=== PATIENT | female | born 1975 | race African-American/Black ===

== ENCOUNTER 2017-09-13 07:35 | Outpatient (CLI) | payer OTHER ==
--- NOTE | 2017-09-13 09:57 | MRI ---
MRI OF CERVICAL SPINE PERFORMED WITHOUT CONTRAST ENHANCEMENT: History: Neck pain that extends into the right shoulder. FINDINGS: The vertebral bodies are normal in height. There is disc narrowing and osteophytic change at the C5-6 level. Cord signal change appears normal. The cord is normal in caliber. C2-3: Unremarkable. C3-4: No canal or foraminal stenosis. C4-5: Minimal disc bulge without significant canal or foraminal stenosis. C5-6: Posterior osteophytic bar is present without significant canal stenosis. There is some very mil d bilateral foraminal narrowing, slightly greater on the left. C6-7: Unremarkable. C7-T1: Unremarkable. IMPRESSION: Disc bulge and posterior osteophytic change at C5-6 associated with some borderline canal narrowing a nd some minimal bilateral foraminal narrowing, greater on the left. POS: [facility]
== END 2017-09-13 07:36 | disposition home or self-care (01) ==
LOC: TBSIIMAG 07:35
PROVIDERS: ATTEND Orthopaedic Surgery
DX: M50.90 Cervical disc disorder, unspecified, unspecified cervical region (principal); M25.78 Osteophyte, vertebrae; M48.02 Spinal stenosis, cervical region; M50.80 Other cervical disc disorders, unspecified cervical region
CPT/HCPCS: 72141

== ENCOUNTER 2017-10-25 07:35 | Outpatient (CLI) | payer OTHER | END 2017-10-25 07:36 | disposition home or self-care (01) | LOC: BICMRI 07:35 | PROVIDERS: ATTEND Neurological Surgery | DX: G93.0 Cerebral cysts (principal); M54.16 Radiculopathy, lumbar region | CPT/HCPCS: 70551; 72148 ==

== ENCOUNTER 2018-03-13 07:35 | Outpatient (CLI) | payer OTHER ==
--- NOTE | 2018-03-13 08:25 | RAD ---
CHEST PA AND LATERAL TWO VIEWS: History: 43-year-old female with history of cough. FINDINGS: Heart size is within normal limits. The lungs are clear. No pneumonia, edema, or pleural effusion. IMPRESSION: No acute intrathoracic disease. No evidence for pneumonia. POS: [facility]
== END 2018-03-13 07:36 | disposition home or self-care (01) ==
LOC: RAD 07:35
PROVIDERS: ATTEND Internal Medicine
DX: R05 Cough (principal)
CPT/HCPCS: 71046

== ENCOUNTER 2018-10-06 09:13 | Outpatient (CLI) | payer OTHER ==
--- NOTE | 2018-10-06 10:41 | MRI ---
MR of the right shoulder without contrast INDICATION: Right shoulder pain. TECHNIQUE: Sagittal T1, axial and coronal PD fat sat, sagittal and coronal T2 fat sat images were obt ained of the right shoulder. COMPARISON: None FINDINGS: Motion artifacts slightly limits image detail Rotator cuff: There is a high-grade partial thickness articular surface rotator cuff tear involving t he mid to posterior supraspinatus with likely full-thickness component involving the mid supraspinatus on image 13 of series 4. There is some extension of the partial-thickness tear in to th e conjoined tendon and anterior aspect of infraspinatus tendon. The tear measures approximately 10.6 x 11 mm in its greatest AP and mediolateral dimensions respectively. There is moderate tendinosi s of the supraspinatus and infraspinatus. Subscapularis and teres minor are intact. Glenohumeral joint: Articular cartilage is intact. Glenoid labrum: Intact Biceps tendon and biceps anchor: Intact and located. Acromion clavicular joint: There is mild AC joint osteoarthrosis. There is a type II acromion Subacromial subdeltoid space: Small amount of fluid is seen within the subacromial subdeltoid bursa Axillary region: No lymphadenopathy. Surrounding shoulder musculature: Normal. No evidence of atrophy or strain. IMPRESSION: 1. High-grade partial thickness articular surface tear of the mid to posterior supraspinatus at the f ootprint with likely a small focal 3 mm full-thickness component. There is articular surface partial thickness extension into the conjoined tendon and anterior infraspinatus at the footprint. 2. Mild AC joint osteoarthrosis
--- NOTE | 2018-10-06 10:56 | MRI ---
MR OF THE THORACIC SPINE WITHOUT CONTRAST INDICATION: Thoracic radiculopathy; upper back pain between T2 and T5 that wraps around the right asp ect of the torso; ongoing for one to 2 years TECHNIQUE: Multiplanar multisequence MR images were obtained of the thoracic spine without contrast. Spine count series was provided. COMPARISON: None FINDINGS: Bone marrow signal intensity: Normal Spinal alignment: Normal Spinal cord: Normal signal intensity and contour. Paravertebral soft tissues: Normal Vertebral levels: T1-T2: No appreciable central canal or neural foraminal narrowing is evident. T2-T3: No appreciable central canal or neural foraminal narrowing. T3-T4: No appreciable central canal or neural foraminal narrowing. T4-T5: No appreciable central canal or neural foraminal narrowing. T5-T6: No appreciable central canal or neural foraminal narrowing. T6-T7: No appreciable central canal or neural foraminal narrowing. T7-T8: No appreciable central canal or neural foraminal narrowing. T8-T9: No appreciable central canal or neural foraminal narrowing. T9-T10: No appreciable central canal or neural foraminal narrowing is evident. T10-T11: No appreciable central canal or neural foraminal narrowing is demonstrated. T11-T12: No appreciable central canal or neural foraminal narrowing. T12-L1: No appreciable central canal or neural foraminal narrowing. Additional findings: None. IMPRESSION: 1. Normal MR of the thoracic spine.
== END 2018-10-06 09:14 | disposition home or self-care (01) ==
LOC: MRI 09:13
PROVIDERS: ATTEND Specialist
DX: M54.14 Radiculopathy, thoracic region (principal); M75.101 Unspecified rotator cuff tear or rupture of right shoulder, not specified as traumatic; M19.011 Primary osteoarthritis, right shoulder
CPT/HCPCS: 72146

== ENCOUNTER 2019-03-21 10:44 | Outpatient (CLI) | payer OTHER ==
[2019-03-21 17:16] LABS: BHCG - Serum Negative (NEGATIVE); Pregs Control Background? CLEAR/WHITE (CLR/WHITE); Pregs Control Bar Appear? YES (CONTROL BAR)
[2019-03-21 17:38] LABS: Anion Gap 13 mmol/L (10-20); BUN (Urea Nitrogen) 7 mg/dL (7.0-18.7); Calc. Creatinine Clearance 0 mL/min (70-130); Carbon Dioxide 25 mmol/L (22-29); Chloride 101 mmol/L (98-107); Estimated GFR-MDRD Greater than 90; Glucose 84 mg/dL (70-105); Potassium 3.3 mmol/L (3.5-5.1); Sodium 136 mmol/L (136-145)
[2019-03-21 18:18] LABS: Eosinophils 5 % (0-10); Hemoglobin 14.5 g/dL (12.0-16.0); Lymphocytes 60 % (21-51); MDiff Complete? YES; Mean Corpuscular Hemoglobin 30.3 pg (27.0-31.0); Mean Corpuscular Volume 91.6 fL (78.0-98.0); Mean Platelet Volume 6.7 fL (7.4-10.4); Monocytes 5 % (0-10); Neutrophil 26 % (42-75); Platelet Count 349 thou/uL (130-400); Platelet Morphology Comment Appears Adequate; RBC Distribution Width 11.2 % (11.5-14.5); RBC Morphology Normal; Reactive Lymphocytes 3 % (0-10); Red Blood Cell (RBC) Count 4.79 mill/uL (4.20-5.40); White Blood Cell (WBC) Count 8.6 thou/uL (4.8-10.8)
== END 2019-03-21 10:45 | disposition home or self-care (01) ==
LOC: LABBT 10:44
PROVIDERS: ATTEND Orthopaedic Surgery
DX: Z01.818 Encounter for other preprocedural examination (principal); M75.101 Unspecified rotator cuff tear or rupture of right shoulder, not specified as traumatic
CPT/HCPCS: 80048; 84703; 85025; 93005; 93010

== ENCOUNTER 2019-03-23 07:23 | Day surgery (SDC) | payer OTHER ==
[2019-03-21 16:28] VITALS: BMI 36.0
[2019-03-23] MEDS ORDERED: Midazolam HCl 2 mg/2 ml Vial ONE (08:54)
[2019-03-23] MEDS ORDERED: Fentanyl 100 MCG/2 ML VIAL ONE (08:55)
[2019-03-23] MEDS ORDERED: Ketorolac Tromethamine 30 MG/ML VIAL IVP PRN (09:15)
[2019-03-23] MEDS ORDERED: Scopolamine 1.5 mg/72 hour Patch ONE (09:15)
[2019-03-23] MEDS ORDERED: Ropivacaine 0.2% 550 ML 550 ML NERVE BLCK SCH (09:15)
[2019-03-23] MEDS ORDERED: Zolpidem Tartrate 5 MG TAB PO PRN (09:15)
[2019-03-23] MEDS ORDERED: Promethazine HCl 25 MG/ML VIAL IM PRN (09:15)
[2019-03-23] MEDS ORDERED: traMADol HCl 50 MG TAB PO PRN ×2 (09:15)
[2019-03-23] MEDS ORDERED: HYDROcodone/Acetaminophen 10/325 mg Tablet PO PRN ×2 (09:15)
[2019-03-23] MEDS ORDERED: Ondansetron PF 4 MG/2 ML Vial IVP PRN (09:15)
[2019-03-23] MEDS ORDERED: Fentanyl 100 MCG/2 ML VIAL IV PRN (09:16)
[2019-03-23] MEDS ORDERED: Bupivacaine/Epinephrine 0.25% 30 ML VIAL ONE (10:52)
--- NOTE | 2019-03-23 17:03 | OP ---
DATE OF PROCEDURE: 03/23/2019 PREOPERATIVE DIAGNOSES: 1. Right shoulder rotator cuff tear. 2. Biceps tendon instability. POSTOPERATIVE DIAGNOSES: 1. Right shoulder rotator cuff tear. 2. Biceps tendon instability. PROCEDURES PERFORMED: Right shoulder arthroscopy followed by arthroscopic rotator cuff repair followed by open biceps tenodesis. TEST ENGINEERING TECHNICIAN: Jarrell Valladares PA-C BLOOD LOSS: Less than 30 mL. COMPLICATIONS: Non ANESTHESIA: She had general anesthetic as well as a preoperative block. IMPLANTS: We used 1 double-loaded titanium anchor for the rotator cuff and we used a 7 x 23 BioComposite Bio-Tenodesis screw for the biceps. DISPOSITION: She did go to recovery room in stable condition. INDICATIONS: A 44-year-old female who has been having problems for quite some time with the right shoulder. We have tried injections and rehabbing and this helped the patient's motion, but she continued to have significant pain and weakness. At this time, she opted for surgery. DESCRIPTION OF PROCEDURE: After all appropriate consent forms were explained and signed, she was taken to the operative room and at this time was given general anesthetic. Once the level of anesthesia was appropriate, she was rolled into the left lateral decubitus position with all bony problems were well padded. An axillary roll was placed underneath the left axilla. Her right arm was then taken through full range of motion and was then hung up of 15 pounds in standard arthroscopic fashion. We then prepped and draped the right shoulder and upper extremity in a standard surgical fashion. Bony anatomical landmarks were drawn out and the subacromial space was infiltrated with Marcaine with epinephrine. Posterior portal was established. Scope was placed into the shoulder joint. Anterior working portal was then made using a needle localization technique. Diagnostic arthroscopy commenced. The articular surface of the humeral head and glenoid were in good condition. No loose bodies were noted in the axillary pouch. The subscapularis tendon was intact. The front portion of supraspinatus had significant tear, and while there were a couple intact fibers, the very beginning of the supraspinatus was torn leading to the biceps, rotating up the back of the groove and it looked like there was a significant amount of bare bone from where the tendon had pulled off. The posterior portion of the tendon appeared normal. The labrum had a significant superior labral tear that was debrided with a shaver. Anterior labrum was in good condition as well as posterior labrum. At this time, a green cannula was placed through the anterior portal. A needle was used to galicia the biceps and take a stitch through it and biceps was cut off the superior labrum using arthroscopic scissors. Once this was done, we then repositioned our camera into the subacromial space. Lateral working portal was made. Bursa was removed and we then noted 2 significant tears. One at the supraspinatus anteriorly just behind where we had placed our stitch through the interval for the biceps. At this time, the edges were freshened up with a shaver. All soft tissue was removed off the bone, and while we slightly decorticated. We made sure we did not remove enough bone to compromise our anchor. Posteriorly, there was an intertendinous tear. Therefore, we then placed our Passport cannula laterally and the first thing we did was place a [id number] suture using Orthocord, and once this was tied down, the small intertendinous tear was closed down. We then through a separate little stab incision placed our titanium anchor into the bone and ran the stitches through the rotator cuff in mattress fashion. These were then tied, bringing our tendon back down to the bone itself. This gave us a nice solid repair. The camera was removed. At this time, we went about performing our biceps tenodesis. A 15 blade was used to incise down through skin and Bovie was used to coagulate any brisk venous bleeding. We then found with a stitch that come through the deltoid fascia and we incised the fascia sharply, and using finger dissection, went in line with the deltoid down to the underlying humerus, and we then opened up our transverse humeral ligament, removing their tendon. All venous bleeding was coagulated. We then sewed our tendon and removed the intra-articular portion of this. We then placed our drill pin, reamed over top of this with a 7 mm reamer to a depth of 25 and placed our 7 x 23 BioComposite Bio-Tenodesis screw in standard fashion. Sutures were tied over top of this of the tendon, so that the screw could not back out. Once this was done, we thoroughly irrigated and dried our incision. The deltoid was allowed to fall close on its own. We ran a Vicryl to close our deltoid fascia, 2-0 Vicryl and nylon sutures were used to close skin. Each portal was also closed with simple nylon stitch. At this time, a bulky sterile dressing was applied. The patient was awakened. She was taken to recovery room in stable condition. All counts were correct at the end of the case. She did receive preoperative IV antibiotics. Job ID: [id number]
== END 2019-03-23 15:00 | disposition home or self-care (01) ==
LOC: SDC 07:23
PROVIDERS: ATTEND Orthopaedic Surgery
PROC: 0RHJ04Z Insertion of Internal Fixation Device into Right Shoulder Joint, Open Approach (ICD-10-PCS; principal; 2019-03-23)
PROC: 0LS10ZZ Reposition Right Shoulder Tendon, Open Approach (ICD-10-PCS; principal; 2019-03-23)
PROC: 0RNJ4ZZ Release Right Shoulder Joint, Percutaneous Endoscopic Approach (ICD-10-PCS; principal; 2019-03-23)
PROC: 0LQ14ZZ Repair Right Shoulder Tendon, Percutaneous Endoscopic Approach (ICD-10-PCS; principal; 2019-03-23)
PROC: 3E0T3BZ Introduction of Anesthetic Agent into Peripheral Nerves and Plexi, Percutaneous Approach (ICD-10-PCS; principal; 2019-03-23)
DX: M25.311 Other instability, right shoulder (principal); M75.111 Incomplete rotator cuff tear or rupture of right shoulder, not specified as traumatic; S43.491A Other sprain of right shoulder joint, initial encounter; G89.18 Other acute postprocedural pain; M19.011 Primary osteoarthritis, right shoulder; M75.01 Adhesive capsulitis of right shoulder; Z79.899 Other long term (current) drug therapy; Z91.018 Allergy to other foods; Z91.030 Bee allergy status
CPT/HCPCS: A4306; C1713; J0690; J2250; J2795; J3010

== ENCOUNTER 2019-08-10 12:13 | Outpatient (CLI) | payer OTHER ==
--- NOTE | 2019-08-10 13:32 | MMO ---
Bilateral MAMMO Bilat Screen [facility]. CLINICAL HISTORY: Patient is 44 years old and is seen for screening. The patient has a history of Breast reduction in 2011. VIEWS: The views performed were: bilateral craniocaudal with tomosynthesis and bilateral mediolateral oblique with tomosynthesis. This study has been interpreted with the assistance of computer-aided detection. MAMMOGRAM FINDINGS: There are scattered fibroglandular densities. Benign calcifications are noted bilaterally. There are no suspicious masses, suspicious calcifications, or new areas of architectural distortion. IMPRESSION: THERE IS NO MAMMOGRAPHIC EVIDENCE OF MALIGNANCY. A ROUTINE FOLLOW-UP MAMMOGRAM IN 1 YEAR IS RECOMMENDED. THE RESULTS OF THIS EXAM WERE SENT TO THE PATIENT. ACR BI-RADS Category 2 - Benign finding MAMMOGRAPHY NOTE: 1. A negative mammogram report should not delay a biopsy if a dominant of clinically suspicious mass is present. 2. Approximately 10% to 15% of breast cancers are not detected by mammography. 3. Adenosis and dense breasts may obscure an underlying neoplasm. Reported by: CONY ORTIZ MD Electonically Signed: [id number]
== END 2019-08-10 12:14 | disposition home or self-care (01) ==
LOC: BICMAMMO 12:13
PROVIDERS: ATTEND Internal Medicine
DX: Z12.31 Encounter for screening mammogram for malignant neoplasm of breast (principal); Z98.890 Other specified postprocedural states
CPT/HCPCS: 77063; 77067

== ENCOUNTER 2020-11-17 12:19 | Outpatient (CLI) | payer BC | END 2020-11-17 12:20 | disposition home or self-care (01) | LOC: BICMAMMO 12:19 | PROVIDERS: ATTEND Family Medicine | DX: Z12.31 Encounter for screening mammogram for malignant neoplasm of breast (principal); Z98.82 Breast implant status | CPT/HCPCS: 77063; 77067 ==

== ENCOUNTER 2021-03-18 06:58 | Outpatient (CLI) | payer BC | END 2021-03-18 06:59 | disposition home or self-care (01) | LOC: BICMRI 06:58 | PROVIDERS: ATTEND Specialist | DX: M50.11 Cervical disc disorder with radiculopathy, high cervical region (principal) | CPT/HCPCS: 72141 ==

== ENCOUNTER 2021-11-18 08:04 | Outpatient (CLI) | payer BC | END 2021-11-18 08:05 | disposition home or self-care (01) | LOC: BICMAMMO 08:04 | PROVIDERS: ATTEND Obstetrics & Gynecology | DX: Z12.31 Encounter for screening mammogram for malignant neoplasm of breast (principal); Z98.890 Other specified postprocedural states | CPT/HCPCS: 77063; 77067 ==

== ENCOUNTER 2022-07-07 07:38 | Outpatient (CLI) | payer OTHER | END 2022-07-07 07:39 | disposition home or self-care (01) | LOC: TBSIIMAG 07:38 | PROVIDERS: ATTEND Specialist | DX: M50.11 Cervical disc disorder with radiculopathy, high cervical region (principal) | CPT/HCPCS: 72141 ==

== ENCOUNTER 2023-12-19 09:26 | Outpatient (CLI) | payer BC | END 2023-12-19 09:27 | disposition home or self-care (01) | LOC: BICMRI 09:26 | PROVIDERS: ATTEND Specialist | DX: M47.22 Other spondylosis with radiculopathy, cervical region (principal); M50.11 Cervical disc disorder with radiculopathy, high cervical region; M48.02 Spinal stenosis, cervical region | CPT/HCPCS: 72141 ==

== ENCOUNTER 2024-02-24 13:36 | Outpatient (CLI) | payer BC | END 2024-02-24 13:37 | disposition home or self-care (01) | LOC: MRI 13:36 | PROVIDERS: ATTEND Surgery | DX: M48.02 Spinal stenosis, cervical region (principal); M50.21 Other cervical disc displacement, high cervical region; M47.812 Spondylosis without myelopathy or radiculopathy, cervical region; M47.813 Spondylosis without myelopathy or radiculopathy, cervicothoracic region | CPT/HCPCS: 72141 ==

== ENCOUNTER 2024-06-29 15:23 | Outpatient (CLI) | payer OTHER | END 2024-06-29 15:24 | disposition home or self-care (01) | LOC: BICRAD 15:23 | PROVIDERS: ATTEND Physician Assistant | DX: M48.02 Spinal stenosis, cervical region (principal); M25.78 Osteophyte, vertebrae; Z98.1 Arthrodesis status | CPT/HCPCS: 72040 ==

== ENCOUNTER 2025-03-01 12:55 | Outpatient (CLI) | payer BC | END 2025-03-01 12:56 | disposition home or self-care (01) | LOC: BICMRI 12:55 | PROVIDERS: ATTEND Nurse Practitioner Family | DX: M54.16 Radiculopathy, lumbar region (principal); M48.061 Spinal stenosis, lumbar region without neurogenic claudication; M48.07 Spinal stenosis, lumbosacral region | CPT/HCPCS: 72148 ==